=== PATIENT | male | born 1945 | race Caucasian/White ===

== ENCOUNTER → 2021-05-05 | Outpatient (CLI) | payer MEDICARE ==
--- NOTE | 2021-05-05 16:30 | CONS ---
CONSULTATION DATE OF SERVICE: 05/05/2021. 76-year-old gentleman has been evaluated in [facility] for possible obstructive sleep apnea-hypopnea syndrome. HISTORY OF PRESENT ILLNESS SLEEP-WAKE EVALUATION: SLEEP SCHEDULE: Patient sleep schedule on weekdays, varies. On weekends from 10 p.m. until 5 a.m. FALLING ASLEEP: No problems with falling asleep. No TV in bedroom. DURING SLEEP: Patient usually sleeps on the back and side position. He snores and had witnessed episodes of stopped breathing. During the sleep by his . He wakes up from sleep 3 times with 3 episodes of nocturia. No history of hypnagogic hallucinations, sleep paralysis or cataplexy. [place] Sleepiness Scale increased to 10. DURING THE DAY/SLEEP WAKE EVALUATION: Usually patient does not take any naps. PAST MEDICAL HISTORY: Positive for hypertension, hyperlipidemia, shoulder arthritis. PAST SURGICAL HISTORY: Cholecystectomy, hernia repair. MEDICATIONS: Simvastatin 20 mg once a day, losartan 100 mg once a day, aspirin 81 mg once a day, vitamins, Melatonin. SOCIAL HISTORY: Negative for smoking, alcohol consumption rarely. FAMILY HISTORY: Heart problems, stroke. REVIEW OF SYSTEMS: Multiple awakenings from sleep, sleepiness during the day, witnessed episodes of stopped breathing during sleep. PHYSICAL EXAMINATION: GENERAL: gentleman without distress. BP 158/80, HR 73, RR 15, height 5 feet 8-1/4 inches, weight 213.2 pounds, body mass index 32, temperature 97.1, oxygen saturation at room air 99%. Oropharynx: Low position of soft palate, Mallampati 3. NECK is wide 17 inches in circumference. Neck: Supple, no JVD. Thyroid is not palpable. LUNGS: Clear to percussion and to auscultation. Good air exchange. No wheezing or rhonchi. HEART: S1, S2 regular. No murmurs, gallops, or rubs. ABDOMEN: Soft and nontender. Bowel sounds are present. No organomegaly appreciated. EXTREMITIES: No clubbing or cyanosis. INSURANCE SPECIAL AGENT: Awake, alert, and oriented X3. Cranial nerves 2 to 7 intact. There is no fasciculation or atrophy. noted. No focal deficits observed. IMPRESSION: 1. Snoring witnessed episodes of stopped breathing during sleep, multiple awakenings from sleep, low position of soft palate, Mallampati 3, wide neck, 17 inches in circumference, sleepiness. [place] Sleepiness Scale is 10, obstructive sleep apnea- hypopnea syndrome. 2. Mild obesity BMI 32.1. 3. Hypertension. 4. Hyperlipidemia. 5. History of shoulder arthritis. 6. Status post cholecystectomy. 7. Status post hernia repair. PLAN: 1. Polysomnography for evaluation of patient's breathing during sleep. 2. CPAP/BiPAP titration if sleep study confirms obstructive sleep apnea-hypopnea syndrome. 3. Preferable position during sleep on the side. 4. No driving if patient feels any sleepiness. 5. I will see patient for follow up visit to explain results of testing and following plan. Thank you very much for referring this patient for consultation. Sincerely, Geovanny Buneo MD, PhD, FAASM Diplomat of [employer] Sleep Medicine Board of [place] [employer] [facility] [place] MMODL / AYAN: [id number] /
== END ==
LOC: SLEEP 15:01
PROVIDERS: ATTEND Internal Medicine
DX: G47.33 Obstructive sleep apnea (adult) (pediatric) (principal); E66.9 Obesity, unspecified; I10 Essential (primary) hypertension; E78.5 Hyperlipidemia, unspecified; Z87.39 Personal history of other diseases of the musculoskeletal system and connective tissue; Z90.49 Acquired absence of other specified parts of digestive tract; Z98.890 Other specified postprocedural states; Z68.32 Body mass index [BMI] 32.0-32.9, adult; Z79.899 Other long term (current) drug therapy
CPT/HCPCS: 99211

== ENCOUNTER → 2021-08-05 | Outpatient (CLI) | payer MEDICARE ==
--- NOTE | 2021-08-05 18:53 | SFUN ---
SLEEP CENTER FOLLOW UP NOTE DATE OF SERVICE: 08/05/2021 This 76-year-old gentleman has been followed in Sleep Center for treatment of obstructive sleep apnea-hypopnea syndrome. Recently the patient had a polysomnogram which showed that he has moderate sleep apnea. Then he had CPAP titration and subsequently I wrote him a prescription for a CPAP machine. Today is his first visit after CPAP therapy was started. The patient is able to use CPAP equipment every night. He feels better while using his CPAP equipment compared with sleeping before without CPAP. [place] Sleepiness Scale today is 6. Position of the machine is lower than his head, but the tube goes up and down to the mask. I checked the CPAP unit. It is in automatic regimen. Range of the pressure is 5 to 14, average pressure 13.8. Usage is 100% of nights for more than 4 hours, average 6 hours 53 minutes. Leak average is 2.0, which is absolutely normal. Apnea-hypopnea index is increased at 9.8. MEDICATIONS: Simvastatin, losartan. PHYSICAL EXAMINATION: GENERAL: Pleasant patient in no distress. VITAL SIGNS: BP 146/79, HR 71, RR 16, weight 210.4, temperature 97.5, oxygen saturation at room air 97%. HEENT: PERRLA, EOMI, evaluation of oropharynx showed tongue protrudes midline. Low position of soft palate; Mallampati III. NECK: Supple, no JVD. Thyroid is not palpable. LUNGS: Clear to percussion and to auscultation. Good air exchange. No wheezing or rhonchi. HEART: S1, S2 regular. No murmurs, gallops, or rubs. ABDOMEN: Soft and nontender. Bowel sounds are present. No organomegaly appreciated. EXTREMITIES: No clubbing or cyanosis. HEAD TURBINE OPERATOR: Awake, alert, and oriented X3. Cranial nerves 2 to 7 intact. There is no fasciculation or atrophy. noted. No focal deficits observed. IMPRESSION: 1. Obstructive sleep apnea-hypopnea syndrome. Patient demonstrated 100% compliance with treatment, benefitting from treatment, but apnea-hypopnea index reading from the machine is still above normal range. 2. Hypertension. 3. Hyperlipidemia. 4. Status post cholecystectomy. 5. Status post hernia repair. 6. Mild obesity. PLAN: 1. I adjusted the range in the machine to AutoPAP with range of pressure 5 to 17. 2. Patient will continue to use PAP equipment every night for the whole night. 3. Sleep hygiene with regular time in bed for at least 7-1/2 to 8 hours. 4. Precautions related to driving. No driving if feeling sleepiness. 5. I will maintain all necessary prescription for PAP supplies including mask, tube, filters. 6. Watching weight. 7. Follow-up visit in 6 months or earlier if patient has any problems. Thank you very much for allowing me to participate in the management of your patient. Sincerely, Geovanny Bueno MD, PhD, FAASM Diplomat of [employer] [employer] Sleep Medicine Board of [employer] [facility] [place] MMODL / MARIANN: [id number] /
== END ==
LOC: SLEEP 14:15
PROVIDERS: ATTEND Internal Medicine
DX: G47.33 Obstructive sleep apnea (adult) (pediatric) (principal); I10 Essential (primary) hypertension; E78.5 Hyperlipidemia, unspecified; Z90.49 Acquired absence of other specified parts of digestive tract; Z98.890 Other specified postprocedural states; E66.9 Obesity, unspecified; Z99.89 Dependence on other enabling machines and devices

== ENCOUNTER 2023-11-24 12:37 | Day surgery (SDC) | payer MEDICARE ==
[2023-11-21 14:58] VITALS: BMI 30.1
[2023-11-24 13:12] VITALS: RESP 16; TEMP 97.7
[2023-11-24] MEDS: LACTATED RINGERS 1,000 ML IV SCH (13:18)
[2023-11-24] MEDS ORDERED: PROPOFOL 10 MG/ML 20 ML VIAL IV ONE (14:17)
--- NOTE | 2023-11-24 14:32 | P.PCN ---
Date of Procedure: 11/24/23 Procedure(s) Performed: BRIEF HISTORY: Patient is a 78-year-old pleasant white man scheduled for an elective colonoscopy as a part of patient by history of colon polyps. Last colonoscopy was 6 years ago. PROCEDURE PERFORMED: Colonoscopy with biopsy. PREOPERATIVE DIAGNOSIS: History of colon polyp. IV sedation per Anesthesia. PROCEDURE: After informed consent was obtained, the patient, was brought into the endoscopy unit. IV sedation was administered by Anesthesia under continuous monitoring. Digital rectal examination was normal. Initially the Olympus CF-160 flexible video colonoscope was then inserted in the rectum, gradually advanced into the cecum without any difficulty. Careful examination was performed as the scope was gradually being withdrawn. Ileocecal valve and the appendiceal orifice were visualized and appeared normal. Prep was excellent. Mucosa of the cecum had a 3 mm polyp that was removed by cold biopsy. In the ascending colon there was a 4 mm polyp removed by cold biopsy. Rest of the, ascending colon, transverse colon, descending colon, sigmoid colon, and rectum appeared normal. Scattered sigmoid diverticulosis. retroflexion was performed in the rectum and grade 2 were seen. The patient tolerated the procedure well. IMPRESSION: 3 mm cecal polyp status post cold biopsy 4 mm ascending colon polyp status post cold biopsy Scattered sigmoid diverticulosis. Grade 2 internal hemorrhoids. RECOMMENDATIONS: Findings of this examination were discussed with the patient as well as his family.. He was advised to follow-up the biopsy results and have have repeat colonoscopy in 5 years because of prior history of colon polyp.
[2023-11-24 14:58] VITALS: BP 133/80; PULSE 65
== END 2023-11-24 15:09 | disposition home or self-care (01) ==
LOC: ORWHC2ENDO 12:37
PROVIDERS: ATTEND Internal Medicine Gastroenterology
DX: Z12.11 Encounter for screening for malignant neoplasm of colon (principal); D12.0 Benign neoplasm of cecum; K57.30 Diverticulosis of large intestine without perforation or abscess without bleeding; K64.1 Second degree hemorrhoids; I10 Essential (primary) hypertension; E78.5 Hyperlipidemia, unspecified; J44.9 Chronic obstructive pulmonary disease, unspecified; G47.33 Obstructive sleep apnea (adult) (pediatric); Z79.899 Other long term (current) drug therapy; Z86.010 Personal history of colon polyps; Z90.49 Acquired absence of other specified parts of digestive tract
CPT/HCPCS: 88305; 45380; J2704